=== PATIENT | female | born 1980 | race Caucasian/White ===

== ENCOUNTER 2024-04-13 09:34 | Outpatient (CLI) | payer BC | END 2024-04-13 09:35 | disposition home or self-care (01) | LOC: BICRAD 09:34 | PROVIDERS: ATTEND Internal Medicine Rheumatology | DX: M25.541 Pain in joints of right hand (principal); M25.542 Pain in joints of left hand; M25.561 Pain in right knee; M25.562 Pain in left knee; M33.13 Other dermatomyositis without myopathy; M25.462 Effusion, left knee ==

== ENCOUNTER 2024-12-16 16:12 | Outpatient (CLI) | payer BC | END 2024-12-16 16:13 | disposition home or self-care (01) | LOC: BICRAD 16:12 | PROVIDERS: ATTEND Internal Medicine Rheumatology | DX: M25.552 Pain in left hip (principal) | CPT/HCPCS: 73523 ==